=== PATIENT | male | born 1955 | race Caucasian/White ===

== ENCOUNTER 2017-11-06 21:07 | Inpatient (IN) | payer MEDICARE ==
[~2017-11-06] VITALS: Ht 175.3 cm; Wt 74.9 kg
[~2017-11-06 21:07] MED LIST: CLONIDINE HCL0.2 MG PO; INDERAL LA80 MG PO; MS CONTIN PO; OXYCODONE PO; VASOTEC5 M1 PO
[2017-11-06] MEDS ORDERED: LEVOFLOXACIN 500MG/D5W 100ML 100 ML IV STA (21:39)
[2017-11-06] MEDS ORDERED: IBUPROFEN 600 MG TAB PO STA (21:39)
[2017-11-06] MEDS ORDERED: VANCOMYCIN 1GM/NS 250 ML 250 ML IV STA (21:39)
[2017-11-06 22:01] LABS: BASOPHILS % 0.2 % (0.0-1.0); HEMATOCRIT 39.2 % (38.2-49.6); HEMOGLOBIN 13.9 g/dL (14.0-18.0); LYMPHOCYTES # (AUTO) 1.1 (1.0-3.2); LYMPHOCYTES % 6.5 % (18.0-39.1); MEAN CORPUSCULAR HGB CONC 35.5 g/dL (31-35); MEAN CORPUSCULAR VOLUME 90.1 fL (81-99); MONOCYTES # (AUTO) 1.3 (0.2-0.8); MONOCYTES % 7.4 % (4.4-11.3); NEUTROPHILS # (AUTO) 14.3 (2.1-6.9); NEUTROPHILS % 84.5 % (38.7-80.0); PLATELET COUNT 222 x10e3/uL (140-360); RED BLOOD COUNT 4.35 x10e6/uL (4.3-5.7); RED CELL DISTRIBUTION WIDTH 12.1 % (11.7-14.4)
[2017-11-06 22:16] LABS: ALANINE AMINOTRANSFERASE 13 IU/L (0-55); ALBUMIN 3.1 g/dL (3.5-5.0); ALBUMIN/GLOBULIN RATIO 0.7 (0.8-2.0); ALKALINE PHOSPHATASE 108 IU/L (40-150); ANION GAP 13.5 mmol/L (8-16); BLOOD UREA NITROGEN 21 mg/dL (7-26); BUN/CREATININE RATIO 19 (6-25); CARBON DIOXIDE 25 mmol/L (22-29); CHLORIDE 95 mmol/L (98-107); CREATININE, SERUM 1.13 mg/dL (0.72-1.25); EST GLOMERULAR FILTRATION RATE > 60 ML/MIN (60-); POTASSIUM 3.5 mmol/L (3.5-5.1); SODIUM 130 mmol/L (136-145)
[2017-11-06 22:18] LABS: GLUCOSE 461 mg/dL (74-118)
[2017-11-06] MEDS ORDERED: INSULIN REGULAR, HUMAN 100 UNIT/1 ML 3ML VIAL SQ ONE (22:30)
--- NOTE | 2017-11-06 22:40 | Diagnostic Imaging Report ---
FOOT RIGHT COMPLETE Comparison: None Clinical history: \S\EVAL FORosteomyelitis, abscess fifth right toe Findings: Oblique view is markedly limited by motion artifact. Moderate soft tissue swelling about the fifth digit. No evidence of bony destruction or acute fracture. Mild first MTP degenerative change. Impression: Moderate soft tissue swelling about the fifth digit without evidence of underlying bony destruction/osteomyelitis. If there is ongoing clinical concern, consider radiographic follow-up or MRI Signed by: Dr Minerva Barry MD on 11/06/2017 10:37 PM
[2017-11-06] MEDS ORDERED: DEXTROSE 50% SYRINGE 50 ML IV PRN (22:45)
[2017-11-06] MEDS ORDERED: MORPHINE SULFATE 2 MG/ML SYR IV PRN (22:45)
[2017-11-06] MEDS ORDERED: ONDANSETRON HCL INJ 2 MG/ML VIAL IV PRN (22:45)
[2017-11-06] MEDS ORDERED: SODIUM CHLORIDE FLUSH 10 ML SYR INJ PRN (22:45)
--- OUTSIDE RECORDS SUMMARY | 2017-11-06 23:15 | XMS REPORT ---
Author Author [facility] Address Unknown Phone Unavailable Care Team Providers Care [employer] Operator Name Role Phone ALY WALKER Unavailable Unavailable Problems This patient has no known problems. Allergies, Adverse Reactions, Alerts This patient has no known allergies or adverse reactions. Medications This patient has no known medications. Results Test Description Test Time Test Comments Text Results Atomic Results Result Comments FOOT RIGHT COMPLETE [place] [id number] Patient Name: MELLISA ADAMES MR #: [id number] : 1955 Age/Sex: 62/M Req #: [id number] Adm Physician: Ordered by: ALY WALKER MD Report #: [id number] Location: ER Room/Bed: Procedure: [id number] DX/FOOT RIGHT COMPLETE Exam Date: 11/06/17 Exam Time: 3 REPORT STATUS: Signed FOOT RIGHT COMPLETE Comparison: None Clinical history: S EVAL FORosteomyelitis, abscess fifth right toe Findings: Oblique view is markedly limited by motion artifact. Moderate soft tissue swelling about the fifth digit. No evidence of bony destruction or acute fracture. Mild first MTP degenerative change. Impression: Moderate soft tissue swelling about the fifth digit without evidence of underlying bony destruction/osteomyelitis. If there is ongoing clinical concern, consider radiographic follow-up or MRI Signed by: Dr Donaldo Barry MD on 11/06/2017 10:37 PM Dictated By: DONALDO BARRY MD 36 Transcribed By: TANA on 11/06/172236 COPY TO: ALY WALKER MD
[2017-11-07] VITALS (8 sets, daily range): BP systolic 106–171; BP diastolic 65–81
[2017-11-07] MEDS: VANCOMYCIN 1GM/NS 250 ML 250 ML IV SCH ×3 (00:05→23:30)
[2017-11-07] MEDS: LEVOFLOXACIN 500MG/D5W 100ML 100 ML IV SCH ×2 (00:18→22:38)
[2017-11-07 06:22] LABS: BASOPHILS % 0.2 % (0.0-1.0); EOSINOPHILS % 0.2 % (0.0-6.0); HEMATOCRIT 32.5 % (38.2-49.6); HEMOGLOBIN 11.2 g/dL (14.0-18.0); LYMPHOCYTES # (AUTO) 1.2 (1.0-3.2); LYMPHOCYTES % 9.4 % (18.0-39.1); MEAN CORPUSCULAR HEMOGLOBIN 31.2 pg (28-32); MEAN CORPUSCULAR HGB CONC 34.5 g/dL (31-35); MEAN CORPUSCULAR VOLUME 90.5 fL (81-99); MONOCYTES # (AUTO) 1.2 (0.2-0.8); MONOCYTES % 8.8 % (4.4-11.3); NEUTROPHILS # (AUTO) 10.6 (2.1-6.9); NEUTROPHILS % 80.5 % (38.7-80.0); PLATELET COUNT 180 x10e3/uL (140-360); RED BLOOD COUNT 3.59 x10e6/uL (4.3-5.7); RED CELL DISTRIBUTION WIDTH 12.1 % (11.7-14.4)
[2017-11-07 07:08] LABS: ALANINE AMINOTRANSFERASE 9 IU/L (0-55); ALBUMIN 2.4 g/dL (3.5-5.0); ALBUMIN/GLOBULIN RATIO 0.6 (0.8-2.0); ALKALINE PHOSPHATASE 90 IU/L (40-150); ANION GAP 14.2 mmol/L (8-16); BLOOD UREA NITROGEN 21 mg/dL (7-26); BUN/CREATININE RATIO 26 (6-25); CALCIUM 7.6 mg/dL (8.4-10.2); CARBON DIOXIDE 20 mmol/L (22-29); CHLORIDE 100 mmol/L (98-107); CREATININE, SERUM 0.82 mg/dL (0.72-1.25); EST GLOMERULAR FILTRATION RATE > 60 ML/MIN (60-); GLUCOSE 314 mg/dL (74-118); POTASSIUM 3.2 mmol/L (3.5-5.1); SODIUM 131 mmol/L (136-145)
[2017-11-07] MEDS: INSULIN REGULAR, HUMAN 100 UNIT/1 ML 3ML VIAL SQ SCH ×4 (07:30→21:00)
--- NOTE | 2017-11-07 07:50 | History and Physical ---
CHIEF COMPLAINT: A 62-year-old gentleman comes in with right lower extremity pain and swelling and erythema. HISTORY OF PRESENTING ILLNESS: This is Mr. Spencer Domínguez with a history of hypertension, history of diabetes mellitus, coronary artery disease, history of immune dysfunction, and chronic pain, was in usual state of health until 2 days prior to admission the patient started to have redness and erythema in the right foot. No injury noted; however, the erythema and swelling and the lymphangitis spread onto the right lower extremity. Patient came in, was admitted for cellulitis of lower extremity. 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 PAST MEDICAL HISTORY: History of hypertension, history of diabetes mellitus, history of coronary artery disease, history of encephalopathy in the past, history of chronic pancreatitis in the past, and immune deficiency also noted. MEDICATIONS: Include: 1. Clonidine. 2. Enalapril 5 mg twice a day. 3. Propranolol 80 mg twice a day. 4. MS Contin 10 mg daily. 5. Oxycodone tablets for pain management. SURGICAL HISTORY: Tonsillectomy and history of coronary artery bypass graft. ALLERGIES: PATIENT IS ALLERGIC TO MULTIPLE MEDICATIONS. PLEASE SEE CHART FOR IT. REVIEW OF SYSTEMS: Negative for chest pain. No shortness of breath. No nausea, vomiting, or diarrhea. No constipation. No rectal bleeding. No hematochezia. No hematemesis. No sore throat. No abdominal pain. No urinary symptoms. No dysuria and no diplopia. No blurry vision. FAMILY HISTORY: History of hypertension, coronary artery disease, and diabetes mellitus. PHYSICAL EXAMINATION: VITAL SIGNS: As of now, temperature is 97.2, pulse is 71, blood pressure is 107/64, pulse oximetry 99%, respiration of 18. HEENT: Normocephalic, atraumatic. Pupils react to light and accommodation. CVS: S1 and S2 normal. Regular rate and rhythm. ABDOMEN: Nontender, nondistended. EXTREMITIES: No clubbing, no cyanosis. Right lower extremity erythema in the dorsum of the foot with swelling, 2+ edema there. Proximal foot also with enlargement in the dorsum. Neurovascularly intact. Lymphangitis spreading out to the lower extremities in the calf area. No tenderness present either. There is also blister in the lateral site and is fluid-filled blister, and decreased sensation in the lower extremities. NEUROLOGICAL: Alert and oriented x3. No cranial nerve deficits. No motor deficits. No weakness. LABORATORY VALUES: Initial CBC was white count of 16,000, hemoglobin of 13.9, hematocrit of 39.2, neutrophil count was 84.5, left shift present. Chemistry: Sodium was 130, potassium was 3.5, BUN of 21, creatinine of 1.13, glucose was 461. Albumin 3.1, globulin 4.6 and ratio was 0.7. IMAGING STUDIES: X-ray of the foot was done, showed moderate soft tissue swelling on the fifth digit without evidence of underlying bony destruction or osteomyelitis. ASSESSMENT: Cellulitis of the lower extremities. Patient has been put on vancomycin and Levaquin, will continue on the same. Patient has been on insulin protocol, but he refuses insulin at this time, and risks and benefits of not having insulin, high blood sugars have been mentioned to the patient, and patient still does not want to have insulin given to him. Morphine sulfate 4 mg has been given for pain control and the patient is on dextrose at 50 mL per hour. Further recommendations on clinical course. Will continue to monitor the patient and also will go ahead and check the vancomycin peak and trough third dose. Patient's creatinine has been holding pretty okay, will continue monitoring that too, further recommendations on clinical course. Will continue monitoring the patient and also his blood sugar levels. Job#: [id number]
[2017-11-07] MEDS: CLONIDINE HCL 0.2 MG TAB PO SCH ×2 (09:05→17:00)
[2017-11-07] MEDS: ENALAPRIL MALEATE 5 MG TAB PO SCH (17:00)
[2017-11-07] MEDS ORDERED: PROPRANOLOL HCL 80 MG CAPCR PO SCH (17:00)
[2017-11-07] MEDS: PROPRANOLOL HCL 10 MG TAB PO SCH (17:00)
[2017-11-07] MEDS ORDERED: SODIUM CHLORIDE 0.9% 250ML 250 ML ONE (22:28)
[2017-11-08] VITALS (7 sets, daily range): BP systolic 136–167; BP diastolic 70–89
[2017-11-08] MEDS: IBUPROFEN 600 MG TAB PO PRN ×2 (00:43→16:55)
[2017-11-08] MEDS ORDERED: DIPHENHYDRAMINE HCL 25 MG CAP PO PRN (07:15)
[2017-11-08] MEDS ORDERED: MORPHINE SULFATE 15MG TAB CR PO ONE (07:15)
[2017-11-08] MEDS: INSULIN REGULAR, HUMAN 100 UNIT/1 ML 3ML VIAL SQ SCH ×4 (07:30→21:00)
[2017-11-08 08:01] LABS: BASOPHILS % 0.2 % (0.0-1.0); EOSINOPHILS % 0.2 % (0.0-6.0); HEMATOCRIT 37.2 % (38.2-49.6); LYMPHOCYTES # (AUTO) 1.1 (1.0-3.2); LYMPHOCYTES % 9.4 % (18.0-39.1); MEAN CORPUSCULAR HEMOGLOBIN 31.6 pg (28-32); MEAN CORPUSCULAR HGB CONC 34.9 g/dL (31-35); MEAN CORPUSCULAR VOLUME 90.3 fL (81-99); MONOCYTES # (AUTO) 0.8 (0.2-0.8); MONOCYTES % 6.6 % (4.4-11.3); NEUTROPHILS # (AUTO) 10.1 (2.1-6.9); NEUTROPHILS % 83.2 % (38.7-80.0); PLATELET COUNT 227 x10e3/uL (140-360); RED BLOOD COUNT 4.12 x10e6/uL (4.3-5.7)
[2017-11-08 08:49] LABS: ANION GAP 15.3 mmol/L (8-16); BLOOD UREA NITROGEN 15 mg/dL (7-26); BUN/CREATININE RATIO 17 (6-25); CALCIUM 8.9 mg/dL (8.4-10.2); CARBON DIOXIDE 22 mmol/L (22-29); CHLORIDE 102 mmol/L (98-107); CREATININE, SERUM 0.86 mg/dL (0.72-1.25); EST GLOMERULAR FILTRATION RATE > 60 ML/MIN (60-); GLUCOSE 293 mg/dL (74-118); POTASSIUM 3.3 mmol/L (3.5-5.1); SODIUM 136 mmol/L (136-145)
[2017-11-08] MEDS: ASPIRIN 81 MG CHEW TAB PO SCH (09:00)
[2017-11-08] MEDS: ENALAPRIL MALEATE 5 MG TAB PO SCH ×2 (09:00→17:00)
[2017-11-08] MEDS: CLONIDINE HCL 0.2 MG TAB PO SCH ×2 (09:00→17:00)
[2017-11-08] MEDS: PROPRANOLOL HCL 10 MG TAB PO SCH ×2 (09:00→17:00)
[2017-11-08] MEDS: VANCOMYCIN 1GM/NS 250 ML 250 ML IV SCH ×2 (11:00→23:41)
[2017-11-08] MEDS: AMITRIPTYLINE HCL 25 MG TAB PO SCH (22:06)
[2017-11-08] MEDS: LEVOFLOXACIN 500MG/D5W 100ML 100 ML IV SCH (22:07)
[2017-11-09] VITALS (7 sets, daily range): BP systolic 83–153; BP diastolic 55–77
[2017-11-09] MEDS ORDERED: SODIUM CHLORIDE 0.9% 500ML 500 ML ONE (01:11)
[2017-11-09] MEDS: INSULIN REGULAR, HUMAN 100 UNIT/1 ML 3ML VIAL SQ SCH ×4 (07:30→20:33)
[2017-11-09] MEDS: ASPIRIN 81 MG CHEW TAB PO SCH (08:57)
[2017-11-09] MEDS: CLONIDINE HCL 0.2 MG TAB PO SCH ×2 (08:58→17:00)
[2017-11-09] MEDS: MORPHINE SULFATE 15MG TAB CR PO SCH (08:58)
[2017-11-09] MEDS: PROPRANOLOL HCL 10 MG TAB PO SCH ×3 (08:58→21:00)
[2017-11-09] MEDS: ENALAPRIL MALEATE 5 MG TAB PO SCH ×2 (08:59→17:00)
--- NOTE | 2017-11-09 10:40 | Diagnostic Imaging Report ---
EXAMINATION: CHEST XRAY LINE PLACEMENT INDICATION: PICC line placement. COMPARISON: 12/18/2013. FINDINGS: TUBES and LINES: Right upper extremity PICC with distal tip projected on the cavoatrial junction. LUNGS: Patchy airspace disease throughout the lungs, particularly in the right upper lobe. PLEURA: No pleural effusion or pneumothorax. HEART AND MEDIASTINUM: The cardiomediastinal silhouette is unremarkable. Median sternotomy wires. BONES AND SOFT TISSUES: No acute osseous lesion. Soft tissues are unremarkable. UPPER ABDOMEN: No free air under the diaphragm. IMPRESSION: Right upper extremity PICC with distal tip projected on the cavoatrial junction. Patchy airspace disease throughout the lungs, particularly in the right upper lobe. Signed by: Dr. Mikey Carvajal M.D. on 11/09/2017 10:36 AM
[2017-11-09] MEDS: VANCOMYCIN 1GM/NS 250 ML 250 ML IV SCH ×2 (12:00→23:50)
[2017-11-09] MEDS: IBUPROFEN 600 MG TAB PO PRN (14:15)
[2017-11-09] MEDS ORDERED: SODIUM CHLORIDE 0.9% 500ML 500 ML IV ONE (20:15)
[2017-11-09] MEDS: AMITRIPTYLINE HCL 25 MG TAB PO SCH (20:32)
[2017-11-09] MEDS: LEVOFLOXACIN 500MG/D5W 100ML 100 ML IV SCH (22:38)
[2017-11-10] VITALS (8 sets, daily range): BP systolic 100–152; BP diastolic 65–98
[2017-11-10] MEDS: PROPRANOLOL HCL 10 MG TAB PO SCH ×3 (04:08→17:08)
[2017-11-10] MEDS ORDERED: PROPRANOLOL HCL 40 MG TAB PO ONE (04:30)
[2017-11-10 07:08] LABS: BASOPHILS % 0.4 % (0.0-1.0); EOSINOPHILS # (AUTO) 0.1 (0.0-0.4); EOSINOPHILS % 0.7 % (0.0-6.0); HEMATOCRIT 32.8 % (38.2-49.6); HEMOGLOBIN 11.4 g/dL (14.0-18.0); LYMPHOCYTES # (AUTO) 1.2 (1.0-3.2); LYMPHOCYTES % 11.2 % (18.0-39.1); MEAN CORPUSCULAR HEMOGLOBIN 31.8 pg (28-32); MEAN CORPUSCULAR HGB CONC 34.8 g/dL (31-35); MEAN CORPUSCULAR VOLUME 91.6 fL (81-99); MONOCYTES # (AUTO) 0.8 (0.2-0.8); MONOCYTES % 7.7 % (4.4-11.3); NEUTROPHILS # (AUTO) 8.5 (2.1-6.9); NEUTROPHILS % 79.1 % (38.7-80.0); PLATELET COUNT 215 x10e3/uL (140-360); RED BLOOD COUNT 3.58 x10e6/uL (4.3-5.7); RED CELL DISTRIBUTION WIDTH 12.1 % (11.7-14.4)
[2017-11-10] MEDS: INSULIN REGULAR, HUMAN 100 UNIT/1 ML 3ML VIAL SQ SCH ×4 (07:30→20:23)
[2017-11-10 08:16] LABS: BLOOD UREA NITROGEN 15 mg/dL (7-26); BUN/CREATININE RATIO 19 (6-25); CALCIUM 8.3 mg/dL (8.4-10.2); CARBON DIOXIDE 24 mmol/L (22-29); CHLORIDE 99 mmol/L (98-107); CREATININE, SERUM 0.81 mg/dL (0.72-1.25); EST GLOMERULAR FILTRATION RATE > 60 ML/MIN (60-); GLUCOSE 309 mg/dL (74-118); SODIUM 134 mmol/L (136-145)
[2017-11-10] MEDS: MORPHINE SULFATE 15MG TAB CR PO SCH (09:54)
[2017-11-10] MEDS: ENALAPRIL MALEATE 5 MG TAB PO SCH ×2 (09:54→17:09)
[2017-11-10] MEDS: CLONIDINE HCL 0.2 MG TAB PO SCH ×2 (09:55→17:08)
[2017-11-10] MEDS: ASPIRIN 81 MG CHEW TAB PO SCH (09:55)
--- NOTE | 2017-11-10 14:43 | Consultation ---
DATE OF CONSULTATION: INFECTIOUS DISEASE CONSULTATION REASON FOR CONSULTATION: Infection of the foot. HISTORY OF PRESENT ILLNESS: This patient is known to me from before, a 62-year-old white gentleman who has history of diabetes mellitus, coronary artery disease, immune dysfunction, chronic pain syndrome. The patient comes in with 1-week history of redness and swelling of his right foot. No specific trauma. The patient was admitted, started on antibiotic, but very minimum improvement. So, Infectious Disease was consulted today. This patient was on antibiotic, but the foot continued to be red and swollen. There is an ulcer noted on the lateral aspect. There is no drainage at the present time, but there is some pain. PAST MEDICAL HISTORY: The patient has history of hypertension, diabetes mellitus, coronary artery disease. Encephalopathy in the past. Pancreatitis in the past. Immune deficiency, acquired. PAST SURGICAL HISTORY: Tonsillectomy and CABG. ALLERGIES: PENICILLIN, STEROIDS, AZITHROMYCIN AND CLINDAMYCIN. SOCIAL HISTORY: There is no smoking, drug abuse, alcohol abuse. MEDICATION: He is on Inderal, aspirin, Catapres, Vasotec, vancomycin and Levaquin. REVIEW OF SYSTEMS HEENT: There is no headache, visual changes, hearing changes. GI: There is no nausea or vomiting or diarrhea. CARDIAC: There is no arrhythmia. NEURO: No seizure activity. SKIN: There is no other rash. PHYSICAL EXAMINATION GENERAL: He is currently alert, oriented, does not seem to be in acute distress. VITAL SIGNS: Stable. Afebrile. HEENT: He is normocephalic, does not appear icteric. NECK: Supple. No JVD, no lymphadenopathy, no thyromegaly. CHEST: Clear bilaterally. HEART: S1 and S2. No S3 or S4, no murmur. ABDOMEN: Soft. Bowel sounds present. No tenderness. EXTREMITIES: There is erythema, there is edema remaining, and there is an ulcer noted on the lateral aspect of his foot. LABORATORY DATA: Reviewed. On admission his white count was 16.9, came down to 10.9, hemoglobin 11. Sodium 134, potassium 4.0, creatinine 0.85. Wound is showing strep group B. He had an x-ray of the foot which showed soft-tissue swelling of the 5th digit. IMPRESSION: Cellulitis of the foot. Concerned about foot 5th digit being with osteomyelitis. Would recommend to obtain an MRI with contrast. I am also concerned about his peripheral vascular disease. I would suggest vascular workup with cardiology consultation. Continue with vancomycin. Will add Zosyn. Would recheck CBC, recheck chem panel. Obtain sed rate, C-reactive protein. Will consult Podiatry and consult Vascular. Will follow with you. Job#: [id number] KAREN
[2017-11-10] MEDS: VANCOMYCIN 1GM/NS 250 ML 250 ML IV SCH ×2 (16:00→22:21)
[2017-11-10] MEDS: IBUPROFEN 600 MG TAB PO PRN (17:05)
[2017-11-10] MEDS: PIPER-TAZ 3.375 GM 50 ML IV SCH (18:01)
[2017-11-10] MEDS: AMITRIPTYLINE HCL 25 MG TAB PO SCH (20:26)
--- NOTE | 2017-11-10 21:31 | Consultation ---
DATE OF CONSULTATION: November 10, 2017 CARDIOLOGY CONSULTATION REQUESTING PHYSICIAN: Dr. Hansen REASON FOR CONSULTATION: AFib with RVR. HISTORY OF PRESENT ILLNESS: This is a 62-year-old male with history of diabetes mellitus, coronary artery disease status post 3-vessel CABG, paroxysmal atrial fibrillation, hypertension, reported vasculitis and immune deficiency, who presented with complaints of erythema and redness of the right foot. He was started on antibiotics with minimal improvement, and infectious disease was therefore consulted. Overnight, he developed tachycardia. EKG demonstrated atrial flutter with rapid ventricular response. Cardiology is consulted for management. The patient denies any chest pain, shortness of breath, edema, orthopnea, or PND. He denies any lightheadedness or syncope. Indicates that he began feeling palpitations yesterday evening, which was corroborated by the vitals indicating he became tachycardic around 5 p.m. yesterday. REVIEW OF SYSTEMS: Negative except as per HPI. PAST MEDICAL HISTORY: 1. Diabetes mellitus. 2. Hypertension. 3. Coronary artery disease status post 3-vessel CABG. 4. Reported history of vasculitis and immune deficiency. PAST SURGICAL HISTORY: 1. Coronary artery bypass graft. 2. Tonsillectomy. ALLERGIES: PLEASE SEE EMR. MEDICATIONS: Please see the medication list. SOCIAL HISTORY: No tobacco, alcohol, or illicit drugs. FAMILY HISTORY: Noncontributory. PHYSICAL EXAMINATION: VITAL SIGNS: Temperature 101 degrees, pulse 110, respiratory rate 20, blood pressure 152/98, oxygen saturation 98%. GENERAL: Well-developed, well-nourished man, in no acute distress. HEENT: Normocephalic, atraumatic. Pupils equal. No scleral icterus. NECK: Supple. No thyromegaly or cervical lymphadenopathy. No carotid bruits. LUNGS: Clear to auscultation bilaterally. No wheezes or crackles. CARDIOVASCULAR: Tachycardic. Irregularly irregular. No murmur. Normal S1 and S2. ABDOMEN: Soft, nontender. EXTREMITIES: There is trace edema on the left with 1+ pitting edema on the right and erythema extending up to the right lower extremity. NEURO: Nonfocal exam. CARDIAC MEDICATIONS: 1. Enalapril 5 mg p.o. b.i.d. 2. Propranolol 20 mg p.o. b.i.d. 3. Clonidine 0.2 mg p.o. b.i.d. 4. Aspirin 162 mg p.o. daily. LABS: WBC 10.69, hemoglobin 11.4, hematocrit 32.8, platelets 215,000. Sodium 134, potassium 4, chloride 99, CO2 24, BUN 15, creatinine 0.81. EKG, atrial flutter with rapid ventricular response. IMPRESSIONS: 1. Atrial flutter with rapid ventricular response. 2. Right lower extremity cellulitis with ulcer on the lateral aspect of the right foot. 3. Diabetes mellitus. 4. Hypertension. 5. Coronary artery disease status post 3-vessel bypass. 6. History of vasculitis reported as well as immune deficiency. RECOMMENDATIONS: 1. Place on telemetry. Titrate up propranolol. 2. Obtain echocardiogram. Bilateral lower extremity arterial Dopplers will be ordered given concern for peripheral vascular disease. Check TSH. Thank you for this consult. We will continue to follow. Job#: [id number]
[2017-11-11 03:47] VITALS: BP 151/70
[2017-11-11] MEDS: PIPER-TAZ 3.375 GM 50 ML IV SCH ×2 (05:32)
[2017-11-11] MEDS: INSULIN REGULAR, HUMAN 100 UNIT/1 ML 3ML VIAL SQ SCH ×4 (07:30→21:00)
[2017-11-11 07:31] VITALS: BP 141/97
--- NOTE | 2017-11-11 08:14 | Diagnostic Imaging Report ---
TECHNIQUE: Magnetic resonance imaging of the RIGHT foot was performed WITHOUT injected contrast. HISTORY: Cellulitis COMPARISON: None available. DISCUSSION: Lateral forefoot ulceration with sinus tract of the fifth MTP joint. Probable septic arthritis of the fifth metatarsophalangeal joint with osteomyelitis involving the fifth metatarsal head and proximal phalanx. Mild marrow edema of the fourth metatarsal head and proximal phalanx. Overlying the fifth metatarsal head and extending into the fourth intermetatarsal space an approximately 2.5 cm abscess. Atrophy of the foot musculature. Diffuse soft tissue edema. IMPRESSION: Osteomyelitis of the fifth metatarsal head and proximal phalanx and probable osteomyelitis of the fourth metatarsal head and proximal phalanx. Overlying soft tissue abscess. Signed by: Dr. Noble Diaz M.D. on 11/11/2017 8:10 AM
[2017-11-11] MEDS ORDERED: PROPRANOLOL HCL 40 MG TAB PO SCH (09:00)
[2017-11-11] MEDS: ASPIRIN 81 MG CHEW TAB PO SCH (09:46)
[2017-11-11] MEDS: ENALAPRIL MALEATE 5 MG TAB PO SCH ×2 (09:47→18:27)
[2017-11-11] MEDS: CLONIDINE HCL 0.2 MG TAB PO SCH ×2 (09:47→18:27)
[2017-11-11] MEDS: MORPHINE SULFATE 15MG TAB CR PO SCH (10:07)
[2017-11-11 11:39] VITALS: BP 127/93
[2017-11-11] MEDS: CEFTRIAXONE SOD 1 GM VIAL IV SCH (13:14)
--- NOTE | 2017-11-11 13:35 | Progress Note ---
DATE: November 11, 2017 CARDIOLOGY CONSULTATION SUBJECTIVE: Patient denies chest pain or shortness of breath. Discussion was held with the patient regarding indication for anticoagulation for CVA prophylaxis in the setting of atrial fibrillation. He expresses that he refuses anticoagulation and understands that he is at risk for stroke if he does not take anticoagulants. OBJECTIVE VITAL SIGNS: Temperature 99.4 degrees, pulse 98, respiratory rate 18, blood pressure 127/93, oxygen saturation 97% on room air. GENERAL: Awake, alert, in no acute distress. LUNGS: Clear to auscultation bilaterally. No wheezes or crackles. CARDIOVASCULAR: Tachycardic. Irregularly irregular. No murmur. Normal S1 and S2. ABDOMEN: Soft, nontender. EXTREMITIES: Trace edema on the left and 1+ pitting edema on the right with erythema that is slightly improved on the right. CARDIAC MEDICATIONS: 1. Propranolol 40 mg p.o. b.i.d. 2. Enalapril 5 mg p.o. b.i.d. 3. Clonidine 0.2 mg p.o. b.i.d. 4. Aspirin 162 mg p.o. daily. LABS: None today. TELEMETRY: AFib with RVR. IMPRESSION 1. Atrial fibrillation/flutter with rapid ventricular response. 2. Right lower extremity cellulitis with ulcer on the lateral aspect of the right foot. 3. Diabetes mellitus. 4. Hypertension. 5. Coronary artery disease status post 3-vessel bypass. 6. History of vasculitis as well as immune deficiency was reported. RECOMMENDATIONS: Continue monitoring the patient on telemetry. Increase propranolol to t.i.d. dosing. There was no evidence of significant peripheral arterial disease on bilateral lower extremity arterial Dopplers. However, MRI of the foot demonstrated osteomyelitis of the 5th metatarsal head and proximal phalanx and probable osteomyelitis of the 4th metatarsal head and proximal phalanx. Antibiotics per infectious disease. Wound care per podiatry. Thank you for this consult. We will continue to follow. Job#: [id number]
[2017-11-11] MEDS: PROPRANOLOL HCL 40 MG TAB PO SCH ×2 (14:20→21:44)
[2017-11-11 15:19] VITALS: BP 151/80
[2017-11-11 20:00] VITALS: BP 129/71
[2017-11-11] MEDS: AMITRIPTYLINE HCL 25 MG TAB PO SCH (21:44)
[2017-11-12] VITALS: BP 129/79
[2017-11-12 04:00] VITALS: BP 137/77
[2017-11-12] MEDS: INSULIN REGULAR, HUMAN 100 UNIT/1 ML 3ML VIAL SQ SCH ×4 (07:30→21:00)
[2017-11-12 08:00] VITALS: BP 170/90
[2017-11-12] MEDS: CLONIDINE HCL 0.2 MG TAB PO SCH ×2 (09:00→16:45)
[2017-11-12] MEDS: PROPRANOLOL HCL 40 MG TAB PO SCH ×3 (09:00→21:00)
[2017-11-12] MEDS: MORPHINE SULFATE 15MG TAB CR PO SCH (09:00)
[2017-11-12] MEDS: ENALAPRIL MALEATE 5 MG TAB PO SCH ×2 (09:00→16:45)
--- NOTE | 2017-11-12 11:32 | Consultation ---
DATE OF CONSULTATION: November 10, 2017 CHIEF COMPLAINT AND HISTORY OF CHIEF COMPLAINT: Mr. Spencer Domínguez is a most pleasant 62-year-old gentleman with painful cellulitic right foot with possible osteomyelitis. PREVIOUS MEDICAL HISTORY: Includes hypertension, diabetes which he is describing as insulin resistant and does not wish to take insulin for, history of coronary artery disease, history of encephalopathy in the past, history of chronic pancreatitis in the past. HISTORY OF PRESENT ILLNESS: The patient states that he has an immune dysfunction and chronic pain. He was in his usual state of health until 2 days prior to admission, when he started to have redness, swelling and drainage from the right foot. He does not remember any injury but states he does have numbness in his lower extremity. He did note that the swelling and lymphangitis had been spreading up his right lower extremity so he came in for evaluation and treatment. REVIEW OF SYSTEMS: Otherwise negative. MEDICATIONS: The patient is on multiple medications well documented elsewhere within the chart. ALLERGIES: THE PATIENT HAS MULTIPLE HISTORICAL ALLERGIC REACTIONS, ALSO WELL DOCUMENTED ELSEWHERE WITHIN THE CHART. FAMILY HISTORY: Positive for hypertension as well as coronary artery disease and diabetes. PHYSICAL EXAMINATION OF LOWER EXTREMITIES VASCULAR STATUS: The patient has mildly palpable pedal pulses, both dorsalis pedis and posterior tibial. Skin temperature is warm. Capillary refill is adequate. DERMATOLOGIC: There is a large ulceration, approximately 5 cm in circumference, on the lateral aspect of the right 5th metatarsal extending from the digit proximalward. The patient also has significant cellulitis on the anterior aspect of the leg and ankle and dorsum of the foot. There is drainage from the open wound in that area as well. Radiographs are positive for soft-tissue edema with no obvious underlying bone destruction at this point. I will order an MRI to assess for underlying osteomyelitis, as this does appear to be the case based on clinical exam. In the interim, continue IV antibiotics and local wound care. Will plan surgical intervention with either local debridement or removal of infected bone pending the outcome of the MRI. Job#: [id number]
[2017-11-12 12:00] VITALS: BP 165/89
[2017-11-12] MEDS ORDERED: CEFTRIAXONE SOD 1 GM VIAL ONE (13:46)
[2017-11-12] MEDS ORDERED: BACITRACIN 50,000 UNIT VIAL ONE (14:28)
[2017-11-12] MEDS ORDERED: BUPIVACAINE 0.25% 30ML SDV INJ ONE (14:28)
[2017-11-12] MEDS ORDERED: VANCOMYCIN HCL 1 GM VIAL ONE (14:48)
[2017-11-12] MEDS: CEFTRIAXONE SOD 1 GM VIAL IV SCH (15:00)
[2017-11-12] MEDS ORDERED: NEOSTIGMINE 1 MG/ML 10ML VIAL ONE (15:15)
[2017-11-12 17:00] VITALS: BP 171/92
--- NOTE | 2017-11-12 18:21 | Operative Report ---
DATE OF PROCEDURE: November 12, 2017 PREOPERATIVE DIAGNOSIS: 1. Osteomyelitis 4th and 5th metatarsals of the right foot and 4th and 5th digits of the right foot. 2. Abscess cellulitis of the right foot. POSTOPERATIVE DIAGNOSIS: 1. Osteomyelitis 4th and 5th metatarsals of the right foot and 4th and 5th digits of the right foot. 1. Abscess cellulitis of the right foot. TITLE OF OPERATION: Amputation 5th digit and metatarsal of the right foot with partial flap closure and deep wound debridement through skin, subcutaneous tissue, muscle and bone. Deep wound was packed with antibiotic beads. Bone biopsy and culture and sensitivity were obtained as well. PROCEDURE IN DETAIL: The patient was taken to the operating room in a mildly sedated state and placed upon the operating table in supine position. Following induction of general anesthetic, the right lower extremity was elevated to 60 degrees to exsanguinate before inflating the pneumatic thigh tourniquet to 350 mmHg to create hemostasis. Right lower extremity was placed upon the operating table prior to performing the following procedure. Procedure number 1 is the incision and drainage with amputation of the 5th digit and metatarsal of the right foot. A linear longitudinal incision was made along the lateral aspect of the 5th metatarsal of the right foot. The distal tissues were nonviable and necrotic all the way to bone. The head of the 5th metatarsal was exposed. All deep tissues were debrided including the 5th metatarsal to approximate midshaft. The underlying tissues were cultured, and a bone biopsy was sent for further pathological evaluation. The bone was cultured as well. The area was then irrigated with copious amounts of sterile saline solution. Multiple pockets were opened along the course of the 4th metatarsal, the 4th digit, and extending into the proximal dorsal tarsus. Those areas were all packed open with antibiotic beads with vancomycin. The area was irrigated with copious amounts of antibiotic solution as well. After debridement and packing, the 4th metatarsal area was probed. The bone appeared darkened and somewhat unhealthy. However, a decision had been made to try and heal the osteomyelitis in the 4th digit and bone with antibiotic beads and IV antibiotics. A partial flap closure was then performed across the proximal aspect as well as the dorsal tarsus to cover the antibiotic beads. This having been accomplished and a fairly large area of exposed soft tissues being present, the underlying tissues were all debrided sharply to bleeding. Release of the pneumatic thigh tourniquet was performed to ensure adequate hemostasis. The deep tissues were previously cultured prior to any antibiotic irrigation. The appropriate mildly compressive dressings were applied including 1/4 inch iodoform packing. The normal hyperemic flush returned to all digits. The appropriate mildly compressive dressings were applied. The patient left the operating room with vital signs stable and in apparent satisfactory condition, having tolerated both anesthetic and procedure very well. The patient will be transported back to the floor and will remain in house for the next several days as he is stabilized and then may be discharged for further local wound care and IV antibiotic treatment. Job#: [id number] EV
--- NOTE | 2017-11-12 18:38 | Progress Note ---
DATE: November 12, 2017 CARDIOLOGY PROGRESS NOTE SUBJECTIVE: The patient denies chest pain or shortness of breath. He has converted to normal sinus rhythm. He is planned for I and D of his right foot today. OBJECTIVE VITALS: Temperature 98 degrees, pulse 74, respiratory rate 20, blood pressure 165/89, and oxygen saturation 100% on room air. GENERAL: Awake, alert and in no acute distress. LUNGS: Clear to auscultation bilaterally. No wheezes or crackles. CARDIOVASCULAR: Normal rate. Regular rhythm. No murmur. Normal S1 and S2. ABDOMEN: Soft and nontender. EXTREMITIES: Trace edema on the left with 1+ pitting edema of the right with erythema extending up the right lower extremity. CARDIAC MEDICATIONS 1. Enalapril 5 mg p.o. b.i.d. 2. Propranolol 40 mg p.o. t.i.d. 3. Clonidine 0.2 mg p.o. b.i.d. LABS: None today. Telemetry is normal sinus rhythm. IMPRESSION 1. Atrial fibrillation with rapid ventricular response, now normal sinus rhythm. 2. Osteomyelitis of the 4th and 5th metatarsal head and proximal phalanx with ulcer and cellulitis of the right foot. 3. Diabetes mellitus. 4. Hypertension. 5. Coronary artery disease, status post 3-vessel bypass. 6. History of vasculitis. 7. Reported history of immune deficiency. RECOMMENDATIONS: Continue monitoring the patient on telemetry. Continue current propranolol dose. There was no evidence of significant peripheral arterial disease on bilateral upper extremity Dopplers. He may proceed with surgical intervention per podiatry. Continue antibiotics per infectious disease. Continue current cardiac medications otherwise. Thank you for this consult. We will continue to follow. Job#: [id number] PANCHITO
[2017-11-12] MEDS ORDERED: LIDOCAINE HCL 2% LOCAL INJ 5 ML SDV VIAL INJ ONE (18:54)
[2017-11-12] MEDS ORDERED: SEVOFLURANE INHAL SOLN 250 ML PEN BTL ONE (18:54)
[2017-11-12] MEDS ORDERED: PROPOFOL IV EMULSION 10 MG/ML 20 ML VIAL ONE (18:54)
[2017-11-12] MEDS ORDERED: FENTANYL CITRATE/PF 100MCG/2 ML INJ ONE (19:16)
[2017-11-12 20:00] VITALS: BP 143/79
[2017-11-12] MEDS: AMITRIPTYLINE HCL 25 MG TAB PO SCH (21:00)
[2017-11-13] VITALS: BP 153/86
[2017-11-13 04:00] VITALS: BP 156/90
[2017-11-13] MEDS: INSULIN REGULAR, HUMAN 100 UNIT/1 ML 3ML VIAL SQ SCH ×2 (07:30→11:30)
[2017-11-13 08:00] VITALS: BP 158/80
[2017-11-13] MEDS: ENALAPRIL MALEATE 5 MG TAB PO SCH (08:40)
[2017-11-13] MEDS: PROPRANOLOL HCL 40 MG TAB PO SCH (08:40)
[2017-11-13] MEDS: MORPHINE SULFATE 15MG TAB CR PO SCH (08:40)
[2017-11-13] MEDS: CLONIDINE HCL 0.2 MG TAB PO SCH (08:40)
[2017-11-13 12:00] VITALS: BP 144/73
[2017-11-13] MEDS: CEFTRIAXONE SOD 1 GM VIAL IV SCH (12:15)
--- NOTE | 2017-11-13 13:00 | Progress Note ---
Patient's age is 62. Patient is a 1 day status post I and D, deep wound debridement, and amputation of the 5th metatarsal and digit of the right foot. Patient had an antibiotic bead packing and deep wound pulse lavage with antibiotic solution for chronic osteomyelitis. The flap at the proximal portion of the amputation site is noted to be viable and closed. The wound base at the lateral aspect of the remaining 4th metatarsal is opened measuring approximately 5 cm x 2 cm packed with iodoform gauze. The packing was removed today, sterile redressed. I recommended a wound VAC due to the extensive exposure and need for a long-term IV antibiotics and local wound care. Patient is planning discharge to [place]. Wound VAC was ordered today and he will of follow with wound care nursing until transferred to [place], and then follow with me on an outpatient basis once weekly. Job#: [id number] NAUN
--- NOTE | 2017-11-13 17:35 | Progress Note ---
DATE: November 13, 2017 CARDIOLOGY PROGRESS NOTE SUBJECTIVE: The patient denies chest pain or shortness of breath. OBJECTIVE VITALS: Temperature 99.1 degrees, pulse 71, respiratory rate 20, blood pressure 144/73, and oxygen saturation 96% on room air. GENERAL: Awake and alert, in no acute distress. LUNGS: Clear to auscultation bilaterally. No wheezes or crackles. CARDIOVASCULAR: Normal rate. Regular rhythm. No murmur. Normal S1 and S2. ABDOMEN: Soft and nontender. EXTREMITIES: Trace edema on the left with 1+ pitting edema of the right that is improved with improving erythema. CARDIAC MEDICATIONS 1. Propranolol 40 mg p.o. t.i.d. 2. Enalapril 5 mg p.o. b.i.d. 3. Clonidine 0.2 mg p.o. b.i.d. LABS: None today. TELEMETRY: Normal sinus rhythm. IMPRESSION 1. Atrial fibrillation with rapid ventricular response, currently in normal sinus rhythm. 2. Osteomyelitis of the 4th and 5th metatarsal head and proximal phalanx with ulcer and cellulitis of the right foot status post I and D, deep wound debridement and amputation of the 5th metatarsal digit of the right foot. 3. Diabetes mellitus. 4. Hypertension. 5. Coronary artery disease, status post 3-vessel bypass. 6. History of vasculitis. 7. Reported history of immune deficiency. RECOMMENDATIONS: Monitor the patient on telemetry while admitted. Continue current cardiac medications. There was no evidence of significant peripheral arterial disease on bilateral lower extremity arterial Dopplers. Antibiotics per infectious disease. Thank you for this consult. We will continue to follow. Job#: [id number]
== END 2017-11-13 15:39 | DRG 617 ==
LOC: ER 21:07 → ERHOLD 22:38 → IMCU 11-07 01:40 → MED/SURG3 11-07 12:46
PROVIDERS: ADMIT Family Medicine; ATTEND Family Medicine
PROC: 02HV33Z Insertion of Infusion Device into Superior Vena Cava, Percutaneous Approach (ICD-10-PCS; 2017-11-09)
PROC: 0QBN0ZZ Excision of Right Metatarsal, Open Approach (ICD-10-PCS; principal; 2017-11-12 13:30)
PROC: 0JXQ0ZB Transfer Right Foot Subcutaneous Tissue and Fascia with Skin and Subcutaneous Tissue, Open Approach (ICD-10-PCS; principal; 2017-11-12 13:30)
PROC: 3E0V329 Introduction of Other Anti-infective into Bones, Percutaneous Approach (ICD-10-PCS; principal; 2017-11-12 13:30)
PROC: 0Y6X0Z0 Detachment at Right 5th Toe, Complete, Open Approach (ICD-10-PCS; principal; 2017-11-12 13:30)
DX: E11.69 Type 2 diabetes mellitus with other specified complication (principal); M86.171 Other acute osteomyelitis, right ankle and foot; D84.9 Immunodeficiency, unspecified; L03.115 Cellulitis of right lower limb; L02.611 Cutaneous abscess of right foot; E11.621 Type 2 diabetes mellitus with foot ulcer; L97.519 Non-pressure chronic ulcer of other part of right foot with unspecified severity; B95.1 Streptococcus, group B, as the cause of diseases classified elsewhere; I10 Essential (primary) hypertension; I48.0 Paroxysmal atrial fibrillation; I25.10 Atherosclerotic heart disease of native coronary artery without angina pectoris; G89.4 Chronic pain syndrome; I77.6 Arteritis, unspecified; Z28.21 Immunization not carried out because of patient refusal; Z88.1 Allergy status to other antibiotic agents; Z88.0 Allergy status to penicillin
CPT/HCPCS: 36415; 36569; 71045; 76000; 80048; 80053; 80202; 82948; 84443; 85025; 87040; 87071; 87205; 88305; 88311; 93005; 93306; 93925; 96367; 99284; C1713; J0696; J1956; J2001; J2270; J2543; J2710; J3370; J7040; J7050